=== PATIENT | male | born 1985 | race African-American/Black ===

== ENCOUNTER 2017-04-17 09:20 | Emergency (ER) | payer OTHER ==
[2017-04-17 09:29] VITALS: BP 154/87
--- NOTE | 2017-04-17 09:40 | RAD ---
Examination: 3 views of the right hand History: History of right hand pain Comparison: None available Findings: The alignment of the metacarpophalangeal joints, interphalangeal joints grossly appears unremarkable. There is no acute fracture or dislocation identified. Impression: No acute osseous findings
--- NOTE | 2017-04-17 09:48 | PHYS DOC ---
Past Medical History Past Medical History: No Pertinent History Past Surgical History: Other Additional Past Surgical Histo: L)leg/knee surgery r/t fx-"have screw", R) knee surgery. Alcohol Use: Occasionally Drug Use: Marijuana Adult General Chief Complaint Chief Complaint: HAND PROBLEM [facility] HPI Patient is a 31 year old male presents to the emergency department with c/o right hand pain that started this morning. Patient states he was moving a dresser when he caught his hand between the door and dresser. He does have an abrasion to the right 2th MIP. Patient is able to move all extremities without difficulty, Last tetanus immunization is approximately 5 years ago. Patient with good sensations, good mobility of the fingers. Patient is right hand dominant. Review of Systems Review of Systems Constitutional: Denies fever or chills [] Eyes: Denies change in visual acuity, redness, or eye pain [] HENT: Denies nasal congestion or sore throat [] Respiratory: Denies cough or shortness of breath [] Cardiovascular: No additional information not addressed in HPI [] GI: Denies abdominal pain, nausea, vomiting, bloody stools or diarrhea [] : Denies dysuria or hematuria [] Musculoskeletal: Denies back pain. Right hand pain Integument: Denies rash or skin lesions. Abrasion to the right 2th MIP Neurologic: Denies headache, focal weakness or sensory changes [] Endocrine: Denies polyuria or polydipsia [] Allergies Allergies Allergies Coded Allergies Type Severity Reaction Last Updated Verified No Known Drug Allergies 06/14/14 No Physical Exam Physical Exam Constitutional: Well developed, well nourished, no acute distress, non-toxic appearance. [] HENT: Normocephalic, atraumatic, bilateral external ears normal, oropharynx moist, no oral exudates, nose normal. [] Eyes: PERRLA, EOMI, conjunctiva normal, no discharge. [] Neck: Normal range of motion, no tenderness, supple, no stridor. [] Cardiovascular:Heart rate regular rhythm, no murmur [] Lungs & Thorax: Bilateral breath sounds clear to auscultation [] Skin: Warm, dry, no erythema, no rash. Abrasion right 2th MIP Back: No tenderness Extremities: Right hand tenderness and oriented X 3, normal motor function, normal sensory function, no focal deficits noted. Patient with good sensation to the right fingers with full ROM noted. Psychologic: Affect normal, judgement normal, mood normal. [] Current Patient Data Vital Signs Vital Signs Date Time Temp Pulse Resp B/P (MAP) Pulse Ox O2 Delivery O2 Flow Rate FiO2 04/17/17 09:29 98.3 78 16 98 Room Air 98.3 EKG EKG [] Radiology/Procedures Radiology/Procedures [][facility] [address] [place] [address] IMAGING REPORT Signed PATIENT: TERRY ALEJANDRO ACCOUNT: [id number] : 1985 LOCATION: ER AGE: 31 SEX: M EXAM STATUS: REG ER ORD. PHYSICIAN: DEISY FORREST APRN REASON: right hand pain PROCEDURE: HAND RIGHT 3V Examination: 3 views of the right hand History: History of right hand pain Comparison: None available Findings: The alignment of the metacarpophalangeal joints, interphalangeal joints grossly appears unremarkable. There is no acute fracture or dislocation identified. Impression: No acute osseous findings DICTATED and SIGNED BY: STEFAN BOYER MD DATE: 04/17/17935 CC: DEISY FORREST APRN; NO PCP ~ Course & Med Decision Making Course & Med Decision Making Pertinent Labs and Imaging studies reviewed. (See chart for details) X-ray was negative for any bony abnormalities. The patient was cleaned with soap and water. Jian wrap was placed over the hand for comfort. Recommended Tylenol or ibuprofen and ice packs. Ice packs on 20 minutes off 20 minutes several times a day. Elevation as much as possible. Patient be encouraged to wear the Jian wrap for the next 3-5 days. Signs symptoms to return back to emergency department provided. Patient was provided with orthopedic name and number to follow up with. Patient was provided with discharge instructions, treatment regimen and followup recommendations. Dragon Disclaimer Dragon Disclaimer This electronic medical record was generated, in whole or in part, using a voice recognition dictation system. Departure Departure Impression: Primary Impression: Sprain of right hand Disposition: HOME, SELF-CARE Condition: STABLE Referrals: NO PCP (PCP) Patient Instructions: Hand Contusion, [id number], Hand Injuries, [id number] Additional Instructions: X-rays were negative for any bony abnormalities. Tylenol or ibuprofen for pain and discomfort. Ice packs on 20 minutes off 20 minutes several times a day. Elevation as much as possible. Wear the Jian wrap for the next 5-7 days. Follow-up with orthopedic in the next 5-7 days. Return back to emergency department for signs symptoms of become worse. DEISY FORREST APRN April 17, 2017 09:47
== END 2017-04-17 10:02 | disposition home or self-care (01) ==
LOC: ER 09:20
DX: S63.91XA Sprain of unspecified part of right wrist and hand, initial encounter (principal); F12.10 Cannabis abuse, uncomplicated; W23.0XXA Caught, crushed, jammed, or pinched between moving objects, initial encounter; Y93.89 Activity, other specified; Y92.89 Other specified places as the place of occurrence of the external cause; Y99.8 Other external cause status
CPT/HCPCS: 73130; 99284-25